=== PATIENT | male | born 1965 ===

== ENCOUNTER 2020-08-19 05:40 | Day surgery (SDC) | payer OTHER ==
[~2020-08-19 05:40] MED LIST: ACIPHEX20 MG PO; ATACAND4 MG PO
[2020-08-19] MEDS ORDERED: ULTRAM50 MG PO (09:43)
[2020-08-19] MEDS ORDERED: NEURONTIN300 MG PO (09:43)
[2020-08-19] MEDS ORDERED: TYLENOL ARTHRI650 MG PO (09:43)
[2020-08-19] MEDS ORDERED: MIRALAX17 GM PO (09:43)
== END 2020-08-19 11:46 | disposition home or self-care (01) ==
LOC: CIR.AMB 05:40 → EDBD 10:15 → CIR.AMB 10:15
PROVIDERS: ATTEND Surgery
DX: K42.0 Umbilical hernia with obstruction, without gangrene (principal); Z20.822 Contact with and (suspected) exposure to COVID-19